=== PATIENT | male | born 1970 | race Caucasian/White ===

== ENCOUNTER 2021-09-20 10:32 | Emergency (ER) | payer OTHER ==
[~2021-09-20] VITALS: Ht 182.9 cm; Wt 116.6 kg
--- NOTE | 2021-09-20 10:56 | PHYS DOC ---
Adult General Chief Complaint Chief Complaint: ABDOMINAL PAIN HPI HPI Patient is a 50-year-old male patient with hx of DM II, STent placement 2015, high cholesterol, presenting to the ED today complaining of a generalized abdominal pain. Patient states symptoms began on Tuesday with which is 3 days ago. He states symptoms began as low abdominal pain described as sharp and intermittent with no exacerbating or relieving factors. He states today he noticed symptoms getting worse with the abdominal pain radiating to bilateral upper abdomen into his chest. Patient states he took Advil and currently he barely has any pain. He states before the Advil the pain was 4 out of 10. Patient denies any nausea, vomiting or diarrhea, denies any hematuria. Denies any urgency frequency or dysuria. Reports being fully vaccinated against Covid. Last dose of Moderna vaccine was in April 2021 (SIERRA PAYNE APRN) Review of Systems Review of Systems Constitutional: Denies fever or chills [] Eyes: Denies change in visual acuity, redness, or eye pain [] HENT: Denies nasal congestion or sore throat [] Respiratory: Denies cough or shortness of breath [] Cardiovascular: Reports abdominal pain radiating to the chest GI: Reports abdominal pain, denies nausea, vomiting, bloody stools or diarrhea [] : Denies dysuria or hematuria [] Musculoskeletal: Denies back pain or joint pain [] Integument: Denies rash or skin lesions [] Neurologic: Denies headache, focal weakness or sensory changes [] All other systems were reviewed and found to be within normal limits, except as documented in this note. (SIERRA PAYNE APRN) Physical Exam Physical Exam Constitutional: Well developed, well nourished, no acute distress, non-toxic appearance. [] HENT: Normocephalic, atraumatic, bilateral external ears normal, oropharynx moist, no oral exudates, nose normal. [] Eyes: PERRLA, EOMI, conjunctiva normal, no discharge. [] Neck: Normal range of motion, no tenderness, supple, no stridor. [] Cardiovascular:Heart rate regular rhythm, no murmur [] Lungs & Thorax: Bilateral breath sounds clear to auscultation [] Abdomen: Bowel sounds normal, soft, diffuse tenderness throughout the abdomen, no obvious point tenderness in the right upper quadrant, right lower quadrant. Negative Plummer sign, negative psoas sign, negative obturator sign, no guarding, no rebound tenderness no masses, no pulsatile masses. [] Skin: Warm, dry, no erythema, no rash. [] Back: No tenderness, no CVA tenderness. [] Extremities: No tenderness, no cyanosis, no clubbing, ROM intact, no edema. [] Neurologic: Alert and oriented X 3, normal motor function, normal sensory function, no focal deficits noted. [] Psychologic: Affect normal, judgement normal, mood normal. [] (SIERRA PAYNE VACUUM DRIER OPERATOR) EKG EKG [address] Gunn sinus tachy HR of 102 no STEMI [] (SIERRA PAYNE VACUUM DRIER OPERATOR) Radiology/Procedures Radiology/Procedures []PROCEDURE: CT CHEST ABD PELVIS W/CONTRAST EXAM: Chest, abdomen and pelvis CT with intravenous contrast. HISTORY: Pain. TECHNIQUE: Computed tomographic images of the chest, abdomen and pelvis were obtained following the administration of intravenous contrast. Multiplanar reformatting was performed. *One or more of the following individualized dose reduction techniques were utilized for this examination: 1. Automated exposure control. 2. Adjustment of the mA and/or kV according to patient size. 3. Use of iterative reconstruction technique. COMPARISON: None. FINDINGS: Chest: The heart is normal in size. There is calcified atherosclerotic plaque involving the coronary arteries. The aorta is normal in caliber. There is no aortic dissection. There is no mediastinal, hilar or axillary lymphadenopathy. There is no pneumothorax or pleural effusion. There is no infiltrate or suspicious pulmonary nodule. There is no acute or suspicious os seous finding. Abdomen and pelvis: There is hepatomegaly and hepatic steatosis. There is a heterogeneous predominantly hypodense lesion within the right hepatic lobe adjacent to the gallbladder fossa measuring 3.1 cm. There is cholelithiasis. The pancreas is unremarkable. The spleen is mildly enlarged, likely within normal limits for patient body habitus. The adrenal glands are unremarkable. There are nonobstructing bilateral renal stones, the largest of which measures 3 mm on the right. There is no hydronephrosis. There is no suspicious renal lesion. There is no appendicitis. There is no bowel obstruction. There is distal colonic diverticulosis. There is segmental wall thickening with surrounding inflammatory stranding involving the mid sigmoid colon, consistent with acute diverticulitis. No drainable fluid collection or free air is seen. There is a small fat-containing umbilical hernia. The bladder is nearly empty. There are prostate calcifications. There is a chronic mild wedge compression deformity of L1. There is degenerative change involving the spine, primarily at L5-S1. IMPRESSION: 1. Acute diverticulitis involving the mid sigmoid colon. There is no evidence of a drainable abscess or free air. Follow-up to confirm resolution and exclude a persistent underlying mucosal lesion in this location. 2. Hepatic steatosis. 3. 2.1 cm heterogeneous lesion involving the right hepatic lobe adjacent to the gallbladder fossa. The imaging appearance is not typical for geographic fatty infiltration. The possibly of a hepatic hemangioma or alternative lesion is not excluded. This can likely be assessed sonographically. 4. Bilateral nephrolithiasis. 5. Cholelithiasis. This consists of a stone at the gallbladder neck. 6. No acute thoracic finding. 7. Small fat-containing umbilical hernia. Electronically signed by: Kendy Mike MD (09/20/2021 12:09 PM) [id number] DICTATED AND SIGNED BY: KENDY MIKE MD DATE: 09/20/21 1202 CC: SIERRA PAYNE VACUUM DRIER OPERATOR; SIRENA WALLS ROLL MILL OPERATOR ~MTH0 0 PROCEDURE: PORTABLE CHEST 1V EXAM: Chest, single view. HISTORY: Chest pain. COMPARISON: None. FINDINGS: 2 views of the chest are obtained. There is no infiltrate, pleural effusion or pneumothorax. The heart is normal in size. IMPRESSION: No acute pulmonary finding. Electronically signed by: Kendy Mike MD (09/20/2021 11:28 AM) [id number] DICTATED AND SIGNED BY: KENDY MIKE MD DATE: 09/20/21 1128 CC: SIERRA PAYNE VACUUM DRIER OPERATOR; SIRENA WALLS ROLL MILL OPERATOR ~MTH0 0 (SIERRA PAYNE APRN) Heart Score C/O Chest Pain: Yes HEART Score for Chest Pain: HEART Score for Chest Pain Response (Comments) Value History Slighlty/Non-Suspicious 0 ECG Normal 0 Age >45 - < 65 1 Risk Factors >3 Risk Factors or Hx CAD 2 Troponin < Normal Limit 0 Total 3 Risk Factors: Risk Factors: DM, Current or recent (<one month) smoker, HTN, HLP, family history of CAD, obesity. Risk Scores: Risk Factors: DM, Current or recent (<one month) smoker, HTN, HLP, family history of CAD, obesity. (SIERRA PAYNE APRN) Course & Med Decision Making Course & Med Decision Making Pertinent Labs and Imaging studies reviewed. (See chart for details) This is a 50-year-old male patient presented to the ED today complaining of generalized abdominal pain that began on Tuesday and ithe pain is currently radiating to the chest since this morning. Vitals on arrival to the ED temperature 99.1, heart rate 94, respiration 22, O2 sats 94%, blood pressure 127/81 CBC with a WBC of 13.5, CMP with a glucose of 200, anion gap is normal. AST 44, ALT 79 EKG is negative for STEMI CT of the abdomen pelvis was noted for diverticulitis, gallstone, nephrolithiasis, Considering patient's cardiac history, there is no GI doctor at [facility]. Patient will be transferred to [facility]. [address] Durand who accepted patient for admission Covid test and blood cultures ordered. Patient started on Cipro and flagyl No beds available to [facility], patient desires to go home troponin is normal. 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 D/c to home (SIERRA PAYNE APRN) Dragon Disclaimer Dragon Disclaimer This electronic medical record was generated, in whole or in part, using a voice recognition dictation system. (SIERRA PAYNE APRN) Attending Co-Sign The patient was seen and interviewed as well as examined at the bedside. The chart was reviewed. The case was discussed. Agree with the plan of care. (LAMAR GUNN DO) Departure Departure: Impression: Primary Impression: Chest pain Additional Impressions: Diverticulitis Gallstone Nephrolithiasis Disposition: HOME / SELF CARE / HOMELESS Condition: STABLE Referrals: SIRENA WALLS (PCP) follow up in the course of this week ANN CARTAGENA MD follow up with GI in the course of this week Patient Instructions: Cholelithiasis, Diverticulosis Additional Instructions: Please take the prescribed antibiotics until completed. Please eat a clear liquid diet for a couple days. Follow-up with your GI doctor primary care doctor and university counselor as soon as you can Scripts Hydrocodone Bit/Acetaminophen (HYDROCODONE-APAP 5-325 ) 1 Each Tablet 1 TAB PO PRN Q6HRS PRN for PAIN, #10 TAB 0 Refills Prov: SIERRA PAYNE VACUUM DRIER OPERATOR 09/20/21 Ondansetron (ONDANSETRON ODT) 4 Mg Tab.rapdis 1 TAB PO PRN Q6-8HRS, #16 TAB Prov: SIERRA PAYNE VACUUM DRIER OPERATOR 09/20/21 Amoxicillin/Potassium Clav (AUGMENTIN 875-125 TABLET) 1 Each Tablet 1 TAB PO BID for 10 Days, #20 TAB 0 Refills Prov: SIERRA PAYNE VACUUM DRIER OPERATOR 09/20/21 Problem Qualifiers Primary Impression: Chest pain Chest pain type: unspecified Qualified Codes: R07.9 - Chest pain, unspecified Additional Impressions: Gallstone Cholecystitis presence: without cholecystitis Biliary obstruction: without biliary obstruction Qualified Codes: K80.20 - Calculus of gallbladder without cholecystitis without obstruction KERRYSIERRA Story APRN Sep 20, 2021 10:56 LAMAR GUNN DO Sep 22, 2021 12:57
[2021-09-20] MEDS ORDERED: FAMOTIDINE 20 MG/2 ML VIAL IVP ONE (11:00)
[2021-09-20] MEDS ORDERED: NITROGLYCERIN SUBLINGUAL 0.4 MG BOTTLE OF 25. SL PRN (11:00)
[2021-09-20] MEDS ORDERED: ONDANSETRON PF 4 MG/2 ML VIAL. IVP ONE (11:00)
[2021-09-20] MEDS ORDERED: ASPIRIN 325 MG TABLET PO ONE (11:00)
--- NOTE | 2021-09-20 11:01 | EKG ---
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
[2021-09-20 11:07] LABS: BASO # 0.1 x10^3/uL (0.0-0.2); BASO % 1 % (0-3); EOS # 0.2 x10^3/uL (0.0-0.7); EOS % 1 % (0-3); HEMATOCRIT 43.1 % (39.0-53.0); LYMPH # 2.2 x10^3/uL (1.0-4.8); LYMPH % 17 % (24-48); MEAN CORPUSCULAR HEMOGLOBIN 31 pg (25-35); MEAN CORPUSCULAR HGB CONC 35 g/dL (31-37); MEAN CORPUSCULAR VOLUME 88 fL (79-100); MONO # 1.2 x10^3/uL (0.0-1.1); MONO % 9 % (0-9); NEUT # 9.8 x10^3uL (1.8-7.7); NEUT % 72 % (31-73); PLATELET COUNT 365 x10^3/uL (140-400); RED BLOOD COUNT 4.91 x10^6/uL (4.30-5.70); RED CELL DISTRIBUTION WIDTH 13.1 % (11.5-14.5); WHITE BLOOD COUNT 13.5 x10^3/uL (4.0-11.0)
[2021-09-20 11:15] LABS: GFR 79.1; POTASSIUM 3.8 mmol/L (3.5-5.1)
[2021-09-20] MEDS ORDERED: IOHEXOL 300 MG/ML 75 ML VIAL. IV ONE (11:15)
[2021-09-20 11:30] LABS: ALBUMIN 3.8 g/dL (3.4-5.0); ALBUMIN/GLOBULIN RATIO 0.9 (1.0-1.7); TOTAL BILIRUBIN 0.9 mg/dL (0.2-1.0); TOTAL PROTEIN 7.9 g/dL (6.4-8.2)
--- NOTE | 2021-09-20 11:31 | RAD ---
EXAM: Chest, single view. HISTORY: Chest pain. COMPARISON: None. FINDINGS: 2 views of the chest are obtained. There is no infiltrate, pleural effusion or pneumothorax . The heart is normal in size. IMPRESSION: No acute pulmonary finding. Electronically signed by: Kendy Hickman MD (09/20/2021 11:28 AM) [id number]
--- NOTE | 2021-09-20 12:11 | RAD ---
EXAM: Chest, abdomen and pelvis CT with intravenous contrast. HISTORY: Pain. TECHNIQUE: Computed tomographic images of the chest, abdomen and pelvis were obtained following the a dministration of intravenous contrast. Multiplanar reformatting was performed. *One or more of the following individualized dose reduction techniques were utilized for this examina tion: 1. Automated exposure control. 2. Adjustment of the mA and/or kV according to patient size. 3. Use of iterative reconstruction technique. COMPARISON: None. FINDINGS: Chest: The heart is normal in size. There is calcified atherosclerotic plaque involving the coronary arteries. The aorta is normal in caliber. There is no aortic dissection. There is no medias tinal, hilar or axillary lymphadenopathy. There is no pneumothorax or pleural effusion. There is no i nfiltrate or suspicious pulmonary nodule. There is no acute or suspicious osseous finding. Abdomen and pelvis: There is hepatomegaly and hepatic steatosis. There is a heterogeneous predominant ly hypodense lesion within the right hepatic lobe adjacent to the gallbladder fossa measuring 3.1 cm. There is cholelithiasis. The pancreas is unremarkable. The spleen is mildly enlarged, likely within normal limits for patient body habitus. The adrenal glands are unremarkable. There are nonobstructing bilateral renal stones, the largest of which measures 3 mm on the right. The re is no hydronephrosis. There is no suspicious renal lesion. There is no appendicitis. There is no b owel obstruction. There is distal colonic diverticulosis. There is segmental wall thickening with shaggy rounding inflammatory stranding involving the mid sigmoid colon, consistent with acute diverticulitis . No drainable fluid collection or free air is seen. There is a small fat-containing umbilical hernia. The bladder is nearly empty. There are prostate new cifications. There is a chronic mild wedge compression deformity of L1. There is degenerative change involving the spine, primarily at L5-S1. IMPRESSION: 1. Acute diverticulitis involving the mid sigmoid colon. There is no evidence of a drainable abscess or free air. Follow-up to confirm resolution and exclude a persistent underlying mucosal lesion in th is location. 2. Hepatic steatosis. 3. 2.1 cm heterogeneous lesion involving the right hepatic lobe adjacent to the gallbladder fossa. Th e imaging appearance is not typical for geographic fatty infiltration. The possibly of a hepatic lio ngioma or alternative lesion is not excluded. This can likely be assessed sonographically. 4. Bilateral nephrolithiasis. 5. Cholelithiasis. This consists of a stone at the gallbladder neck. 6. No acute thoracic finding. 7. Small fat-containing umbilical hernia. Electronically signed by: Kendy Hickman MD (09/20/2021 12:09 PM) [id number]
[2021-09-20 12:35] LABS: BARBITURATES NEG (NEG); BENZODIAZEPINES NEG (NEG); CANNABINOIDS NEG (NEG); COCAINE NEG (NEG); METHADONE NEG (NEG); OPIATES NEG (NEG); PHENCYCLIDINE NEG (NEG)
[2021-09-20 12:39] LABS: AMPHETAMINE/METHAMPHETAMINE NEG (NEG)
[2021-09-20] MEDS ORDERED: CIPROFLOXACIN 400MG PREMIX 200 ML IV ONE (12:45)
[2021-09-20 12:55] LABS: BACTERIA,URINE 0 /HPF (0-FEW); BILIRUBIN,URINE NEG (NEG); CLARITY,URINE CLEAR; COLOR,URINE YELLOW; GLUCOSE,URINE 100 mg/dL (NEG); NITRITE,URINE NEG (NEG); RBC,URINE RARE /HPF (0-2); SQUAMOUS EPITHELIAL CELL,UR OCC /LPF; WBC,URINE RARE /HPF (0-4)
[2021-09-20] MEDS ORDERED: ONDA4TAB12 PO (20:25)
[2021-09-20] MEDS ORDERED: AMOX1TAB61 PO (20:25)
[2021-09-20] MEDS ORDERED: HYDR-2155 PO (20:33)
[2021-09-20 21:15] VITALS: BP 133/87
== END 2021-09-20 21:44 | disposition home or self-care (01) ==
LOC: ER 10:32
DX: K57.32 Diverticulitis of large intestine without perforation or abscess without bleeding (principal); N20.0 Calculus of kidney; K80.20 Calculus of gallbladder without cholecystitis without obstruction; E11.9 Type 2 diabetes mellitus without complications; E78.00 Pure hypercholesterolemia, unspecified; Z20.822 Contact with and (suspected) exposure to COVID-19
CPT/HCPCS: 36415; 71045; 71260; 74177; 80053; 80307; 81001; 82553; 83690; 83735; 83880; 84484; 85025; 87040; 87426; 93005; 96365; 96367; 96375; 99285; C9803; J0744; J2405; J3010; J3490; Q9967; U0003

== ENCOUNTER → 2021-12-30 | Outpatient (CLI) | payer OTHER ==
[~2021-12-30] MED LIST: AMOX1TAB61 PO; HYDR-2155 PO; ONDA4TAB12 PO
--- NOTE | 2021-12-30 13:37 | RAD ---
EXAM: Scrotal sonogram. HISTORY: Right testicular pain. TECHNIQUE: Hobbs scale and color Doppler sonographic imaging of the scrotum with spectral waveform erica lysis was performed. COMPARISON: None. FINDINGS: The testes are normal in size and demonstrate normal symmetric blood flow. There are tiny t esticular microcalcifications. No focal testicular parenchymal lesion is seen. There is slight asymme tric increased size of the left epididymis. There is no asymmetric increased blood flow involving the left epididymis. There is no hydrocele or varicocele. There is no inguinal lymphadenopathy. IMPRESSION: 1. Slight asymmetric increased size of the left epididymis. This may be physiologic given the absence of asymmetric increased blood flow to suggest epididymitis. 2. Minimal testicular microlithiasis. Continued clinical follow-up is recommended. Electronically signed by: Kendy Hickman MD (12/30/2021 1:34 PM) [id number]
== END ==
LOC: US 12:45
PROVIDERS: ATTEND Radiology Radiation Oncology
DX: C88.4 Extranodal marginal zone B-cell lymphoma of mucosa-associated lymphoid tissue [MALT-lymphoma] (principal); N50.89 Other specified disorders of the male genital organs
CPT/HCPCS: 76870